=== PATIENT | male | born 1995 | race Caucasian/White ===

== ENCOUNTER 2018-11-22 15:02 | Emergency (ER) | payer BC ==
[~2018-11-22] VITALS: Ht 182.9 cm; Wt 93.0 kg
[2018-11-22] MEDS ORDERED: NORCO 5-325 TA1 EACH PO (16:01)
[2018-11-22] MEDS ORDERED: PENICILLIN VK250 MG PO (16:01)
[2018-11-22 16:19] VITALS: BP 138/85
== END 2018-11-22 16:21 | disposition home or self-care (01) ==
LOC: M.ERS 15:02
DX: S71.112A Laceration without foreign body, left thigh, initial encounter (principal); K08.89 Other specified disorders of teeth and supporting structures; W26.0XXA Contact with knife, initial encounter; Y92.89 Other specified places as the place of occurrence of the external cause; Y99.0 Civilian activity done for income or pay; Y99.8 Other external cause status